=== PATIENT | male | born 1970 | race Caucasian/White ===

== ENCOUNTER 2023-09-21 11:24 | Inpatient (IN) | payer BC, SELFPAY ==
[2023-09-21 11:37] VITALS: BP 168/90; PULSE 86; RESP 18; TEMP 37.1; O2SAT 96; BMI 29.0
--- NOTE | 2023-09-21 11:55 | ECG_ITS ---
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 Measurements Intervals [place] Rate: 83 P: 47 OH: 165 QRS: 34 QRSD: 79 T: 43 QT: 366 QTc: 432 Interpretive Statements SINUS RHYTHM No previous ECG available for comparison Electronically Signed On 09-21-2023 22:01:05 CDT by Lashonda Walter M.D. [id number]
[2023-09-21 12:23] LABS: Basophils % 0.5 %; Eosinophils # 0.1 10^3/uL (0.0-0.8); Eosinophils % 0.6 %; Lymphocytes # 1.1 10^3/uL (0.8-4.8); Lymphocytes % 14.5 %; Mean Corpuscular Hemoglobin 30.5 pg (27-33); Mean Corpuscular Volume 89.5 fl (82-101); Mean Platelet Volume 9.1 fL (7.4-10.4); Monocytes # 0.7 10^3/uL (0.2-0.9); Monocytes % 9.2 %; Neutrophils # 5.83 10^3/uL (1.8-7.7); Neutrophils % 74.8 %; Nucleated Red Blood Cells % 0 %; Platelet Count 315 10^3/cmm (157-399); Red Blood Count 5.25 10^6/uL (3.85-5.65); Red Cell Distribution Width 13.5 % (12.1-15.1)
--- NOTE | 2023-09-21 12:46 | W.ED.PSYCHS ---
HPI - Psych General: Chief Complaint: Psychiatric Symptoms Stated Complaint: SI Time Seen by Provider: 09/21/23 11:33 History of Present Illness: 53-year-old male presents emergency department chief complaint of suicidal thoughts and ideations patient apparently is concerned about the infidelity in his marriage with his in which she is reported to family and friends that he wants to shoot himself to end his life patient reports she does not believe in divorce and this will give him and out patient reports history of suicidal thoughts and ideations that been going on for many years. Patient does not endorse have ever been seen by psychiatry reports no other associated symptoms. Associated symptoms: Reports depression and suicidal ideation Review of Systems General: Reports: 10 or more systems reviewed and unremarkable except in HPI and below Const: Denies: fever(s), chills, fatigue or malaise Eyes: Denies: change in vision or blurry vision Card: Denies: chest pain or palpitations Resp: Denies: dyspnea or productive cough GI: Denies: abdominal pain, nausea or vomiting : Denies: flank pain Musc: Denies: extremity pain or extremity swelling Skin/Breast: Denies: rash or pruritus Neuro: Denies: headache(s) Psych: Reports: depression, hopelessness, paranoia and suicidal ideation; Denies: anxiety Peterson/Lymph: Denies: easy bleeding All/Imm: Denies: urticaria, throat swelling or facial swelling Physical Exam Const: COMMON NORMALS: no acute distress, patient oriented x3 and healthy appearing HENMT: COMMON NORMALS: normocephalic and atraumatic HEAD & SCALP: normocephalic and atraumatic Eye: COMMON NORMALS: Equal, round and reactive pupils present and EOMs intact bilaterally PUPIL: Yes Equal, round and reactive pupils present Neck/C-Spine: COMMON NORMALS: full ROM, supple and no JVD Lymph: LYMPHATIC: no lymphadenopathy noted Chest: COMMONS NORMALS: normal inspection of the chest and normal palpation of entire chest wall Resp: COMMON NORMALS: normal respiratory effort, No retractions and clear to auscultation bilaterally EFFORT & INSPECTION: Yes able to speak in complete sentences and Yes symmetric chest movement AUSCULTATION: clear to auscultation bilaterally Cardio: COMMON NORMALS: no JVD, regular rate and regular rhythm RATE: regular rate RHYTHM: regular rhythm GI: COMMON NORMALS: Normal to inspection, nondistended, normoactive bowel sounds present, Soft to palpation and non-tender INSPECTION: Yes normal to inspection PALPATION: Yes Soft to palpation : COMMON NORMALS: Yes no CVA tenderness BLADDER/KIDNEY EXAM: Yes no CVA tenderness Back/Pelvis: COMMON NORMALS: no CVA tenderness Extremity: COMMON NORMALS: normal to inspection and full ROM Neuro: COMMON NORMALS: patient oriented x3, CN's II-XII intact bilaterally, moves all extremities and no focal motor deficits Psych: COMMON NORMALS: mental status grossly normal, Normal thought process present, cooperative and normal affect; negative for denies homicidal ideation and negative for denies suicidal ideation (Patient direct reports having homicidal and suicidal ideations towards hims) THOUGHT PROCESS: Normal thought process present Skin: COMMON NORMALS: no rashes or lesions noted GENERAL SKIN EXAM: no rashes or lesions noted Course Vital Signs: Vital signs: Vital Signs Temperature 98.8 F 09/21/23 11:37 Pulse Rate 86 09/21/23 11:37 Respiratory Rate 18 09/21/23 11:37 Blood Pressure 168/90 09/21/23 11:37 Pulse Oximetry 96 09/21/23 11:37 Oxygen Delivery Me thod Room Air 09/21/23 11:37 MDM - Psych Medical Decision Making Due to patient's significant edition patient ongoing medical clearance examinations for psychiatric placement upon clearing for psychiatric placement affidavit was filled out by the patient's daughter I will be contacting Dr. Huffman to see there is any availability in the nPU. Notified by nursing staff Dr. Carlin is actually on-call for the NPU,contacted Dr. Carlin that is in agreement that the patient should be admitted for further evaluation management. Lab Data 09/21/23 12:05 09/21/23 12:05 Laboratory Results WBC 7.80 10^3/uL (3.29-11.43) 09/21/23 12:05 RBC 5.25 10^6/uL (3.85-5.65) 09/21/23 12:05 Hgb 16.00 g/dL (11.27-16.99) 09/21/23 12:05 Hct 47.0 % (37-53) 09/21/23 12:05 MCV 89.5 fl (82-101) 09/21/23 12:05 MCH 30.5 pg (27-33) 09/21/23 12:05 MCHC 34.0 g/dL (30-55) 09/21/23 12:05 RDW 13.5 % (12.1-15.1) 09/21/23 12:05 Plt Count 315 10^3/cmm (157-399) 09/21/23 12:05 MPV 9.1 fL (7.4-10.4) 09/21/23 12:05 Neut % (Auto) 74.8 % 09/21/23 12:05 Lymph % (Auto) 14.5 % 09/21/23 12:05 Dubois % (Auto) 9.2 % 09/21/23 12:05 Eos % (Auto) 0.6 % 09/21/23 12:05 Baso % (Auto) 0.5 % 09/21/23 12:05 Neut # (Auto) 5.83 10^3/uL (1.8-7.7) 09/21/23 12:05 Lymph # (Auto) 1.1 10^3/uL (0.8-4.8) 09/21/23 12:05 Dubois # (Auto) 0.7 10^3/uL (0.2-0.9) 09/21/23 12:05 Eos # (Auto) 0.1 10^3/uL (0.0-0.8) 09/21/23 12:05 Baso # (Auto) 0.0 10^3/uL (0.0-0.1) 09/21/23 12:05 Nucleated RBC % (auto) 0 % 09/21/23 12:05 Nucleated RBCs # 0.0 /100WBC 09/21/23 12:05 Sodium 134 mmol/L (136-145) L 09/21/23 12:05 Potassium 3.9 mmol/L (3.5-5.1) 09/21/23 12:05 Chloride 98 mmol/L (98-107) 09/21/23 12:05 Carbon Dioxide 22 mmol/L (22-29) 09/21/23 12:05 Anion Gap 17.9 (5-19) 09/21/23 12:05 BUN 15 mg/dL (6-20) 09/21/23 12:05 Creatinine 0.6 mg/dL (0.7-1.2) L 09/21/23 12:05 GFR Calculation 142.0 mL/min (90-130) H 09/21/23 12:05 Glucose 142 mg/dL (65-115) H 09/21/23 12:05 Calculated Osmolality 281 mOsm/kg (285-295) L 09/21/23 12:05 Calcium 9.0 mg/dL (8.5-10.5) 09/21/23 12:05 Total Bilirubin 1.0 mg/dL (0.15-1.2) 09/21/23 12:05 AST 18 U/L (0-40) 09/21/23 12:05 ALT 17 U/L (0-41) 09/21/23 12:05 Alkaline Phosphatase 71 U/L (40-130) 09/21/23 12:05 Total Protein 8.5 g/dL (6.6-8.7) 09/21/23 12:05 Albumin 4.4 g/dL (3.5-5.2) 09/21/23 12:05 Globulin 4.1 g/dL (1.3-4.6) 09/21/23 12:05 TSH 6.11 uIU/mL (0.27-4.20) H 09/21/23 12:05 Urine Color Yellow (Yellow) 09/21/23 13:07 Urine Appearance Clear (CLEAR) 09/21/23 13:07 Urine pH 5 (5-7) 09/21/23 13:07 Ur Specific [place] 1.025 (1.005-1.030) 09/21/23 13:07 Urine Protein Neg (Negative) 09/21/23 13:07 Urine Glucose (UA) Norm (Normal) 09/21/23 13:07 Urine Ketones 1+ (Negative) H 09/21/23 13:07 Urine Blood 2+ (Negative) H 09/21/23 13:07 Urine Nitrate Negative (Negative) 09/21/23 13:07 Urine Bilirubin Neg (Negative) 09/21/23 13:07 Urine Urobilinogen Norm mg/dL (Negative) 09/21/23 13:07 Ur Leukocyte Esterase Negative (Negative) 09/21/23 13:07 Urine RBC 0-4 /hpf (0-2) H 09/21/23 13:07 Urine WBC 0-4 /hpf (0-5) H 09/21/23 13:07 Ur Squamous Epith Cells None /hpf (0-5) 09/21/23 13:07 Amorphous Sediment Not Reportable 09/21/23 13:07 Urine Bacteria None /hpf (NONE) 09/21/23 13:07 Salicylates < 0.3 mg/dL (3-10) L 09/21/23 12:05 Urine Opiates Screen Negative ng/mL (Negative) 09/21/23 13:07 Acetaminophen < 5.0 ug/mL (10-30) L 09/21/23 12:05 Ur Barbiturates Screen Negative ng/mL (Negative) 09/21/23 13:07 Ur Phencyclidine Scrn Negative ng/mL (Negative) 09/21/23 13:07 Ur Amphetamines Screen Negative ng/mL (Negative) 09/21/23 13:07 U Benzodiazepines Scrn Negative ng/mL (Negative) 09/21/23 13:07 Urine Cocaine Screen Negative ng/mL (Negative) 09/21/23 13:07 U Marijuana (THC) Screen Positive ng/mL (Negative) H 09/21/23 13:07 Ethyl Alcohol < 10 mg/dL (0-10) 09/21/23 12:05 No radiology studies performed this visit Discharge Plan Discharge Patient Disposition: Admitted As Inpatient Clinical Impression: Suicidal ideation Condition: Stable Prescriptions: No Action No Known Home Medications Coding Level of Care Code ED Senior Telecommunications Specialist for Susan Osborne
[2023-09-21 13:02] LABS: Alanine Aminotransferase 17 U/L (0-41); Albumin Level 4.4 g/dL (3.5-5.2); Alkaline Phosphatase 71 U/L (40-130); Blood Urea Nitrogen 15 mg/dL (6-20); Carbon Dioxide 22 mmol/L (22-29); Chloride 98 mmol/L (98-107); Creatinine Clr Calc Pharmacy 180.9996; Globulin 4.1 g/dL (1.3-4.6); Glucose 142 mg/dL (65-115); Osmolality Calculated 281 mOsm/kg (285-295); Sodium 134 mmol/L (136-145); Thyroid Stimulating Hormone 6.11 uIU/mL (0.27-4.20); Total Protein 8.5 g/dL (6.6-8.7)
[2023-09-21 13:05] LABS: Salicylate < 0.3 mg/dL (3-10)
[2023-09-21 13:06] LABS: Acetaminophen < 5.0 ug/mL (10-30); Alcohol Level < 10 mg/dL (0-10); Anion Gap 17.9 (5-19); Aspartate Amino Transferase 18 U/L (0-40); Potassium 3.9 mmol/L (3.5-5.1)
[2023-09-21 13:30] LABS: Amphetamines Screen Urine Negative (Negative); Barbiturates Screen Urine Negative (Negative); Benzodiazepines Screen Urine Negative (Negative); Cocaine Screen Urine Negative (Negative); Opiate Screen Urine Negative (Negative); PCP Screen Urine Negative (Negative); THC Screen Urine Positive (Negative)
[2023-09-21 13:49] LABS: Add Urine Microscopic? YES; Bilirubin Urine Neg (Negative); Blood Urine 2+ (Negative); Glucose Urine UA Norm (Normal); Ketones Urine 1+ (Negative); Leukocyte Esterase Urine Negative (Negative); Nitrate Urine Negative (Negative); Protein Urine Neg (Negative); RBC Urine 0-4 /hpf (0-2); Specific Gravity, Urine 1.025 (1.005-1.030); Urine Appearance Clear (CLEAR); Urine Color Yellow (Yellow); Urobilinogen Urine Norm (Negative); WBC Urine 0-4 /hpf (0-5); pH Urine 5 (5-7)
--- NOTE | 2023-09-21 14:00 | PC.NURSE ---
96 hr rights reviewed with patient @1320 with assistance of [facility] disciplinary hearing officer Dhaval. Patient verbalized no concerns or questions at this time. No needs when asked. Patient copy left @bedside with patient.
[2023-09-21] MEDS: acetaminophen 325 mg Tablet 650 MG PO ×2 (14:52→21:32)
[2023-09-21 15:35] VITALS: BP 168/84; PULSE 81; TEMP 36.4; O2SAT 98
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
[2023-09-21 21:25] VITALS: BP 131/87; PULSE 86; RESP 16; TEMP 36.9; O2SAT 96
[2023-09-21] MEDS: trazodone 50 mg Tablet PO (21:32)
[2023-09-21] MEDS: hyDROXYzine 25 mg Capsule 50 MG PO (21:33)
[2023-09-22 06:00] VITALS: BP 120/76; PULSE 61; RESP 16; TEMP 36.6; O2SAT 96
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
--- NOTE | 2023-09-22 08:03 | PC.NURSE ---
During nursing shift assessment, patient denies SI, HI, AVH, depression and anxiety. Patient calm and cooperative.
[2023-09-22] MEDS: acetaminophen 325 mg Tablet 650 MG PO (12:12)
[2023-09-22 13:21] VITALS: BP 120/54; PULSE 82; RESP 16; TEMP 36.6; O2SAT 96
[2023-09-22] MEDS: hyDROXYzine 25 mg Capsule 50 MG PO (16:04)
[2023-09-22 19:28] VITALS: BP 137/75; PULSE 90; RESP 18; TEMP 36.8; O2SAT 96
[2023-09-22] MEDS: trazodone 50 mg Tablet PO (20:52)
[2023-09-23 06:00] VITALS: BP 115/76; PULSE 79; RESP 18; TEMP 36.5; O2SAT 94
[2023-09-23] MEDS: OLANZapine 5 mg ODT PO (06:12)
[2023-09-23] MEDS: acetaminophen 325 mg Tablet 650 MG PO ×3 (06:13→21:37)
--- NOTE | 2023-09-23 07:54 | PC.NURSE ---
During assessment, patient stated that he is not sure that he is experiencing anxiety, that he is a driven person. Patient said that he has not seen a doctor since 1986. Patient said that this place has slowed his mental healing, that being around loved ones is the way to heal him. Patient said that he is in the worst scenario, currently. Patient stated that he has never missed a family members birthday, etc but today if he is still here, he is going to miss his two year old granddaughter's birthday republican.
[2023-09-23] MEDS: hyDROXYzine 25 mg Capsule 50 MG PO ×2 (09:16→19:32)
--- NOTE | 2023-09-23 11:51 | P.NPUPN_ITS ---
Subjective NPU 2 Subjective: Patient presented today reporting that he is doing okay. He has continued to be radio silent with his except for a brief interaction as she continues to be unwilling to give clarity to the situation that she seems to be being less then honest. He has the support of his children and has started to consider whether or not he needs to at least take some time to himself to identify what the best decision would be as well as consider not going home at discharge. He continues to be of the belief that he needs to do therapy and that medication is not necessarily needed. He continues to be tearful quite easily per staff reports and direct observation. Mental Status Exam 2 MSE Comments: This is an overweight is white male in hospital scrubs with adequate grooming and eye contact. No abnormal movements except for mild psychomotor agitation. Cooperative with exam in mild distress. Speech was normal rate and volume. Mood described as anxious and sad, affect congruent and continually tearful. Thought process organized. Thought content: Patient denied any current suicidal or homicidal ideations, but he does endorse that he did have a gun to his head and was thinking about pulling the trigger, there were no delusions reported but or noted, he denied any auditory or visual hallucinations. Attention and concentration appeared intact and memory was mostly reliable but none were formally tested. He is alert and oriented x3. Insight and judgment are limited, impulse control is limited versus impaired. Vitals/I&O/Wt Last Vital Signs Temp 97.7 F 09/23/23 06:00 Pulse 79 09/23/23 06:00 Resp 18 09/23/23 06:00 BP 115/76 09/23/23 06:00 Pulse Ox 94 09/23/23 06:00 O2 Del Method Room Air 09/23/23 06:00 Data NPU 09/21/23 12:05 09/21/23 12:05 A&P Assessment and plan (1) Suicidal ideation: (2) Marital/partner relational problem: (3) Adjustment disorder with mixed disturbance of emotions and conduct: (4) Depression: Plan This is a 53-year-old white male who is unknown to [facility] through inpatient or outpatient services but reports past mental health care after his had cheated on him approximately 15 years ago and he finds himself overwhelmed with possibility that she might have again this led to him grabbing a gun to try to convince her to be straightforward with him. 1. Consider initiating antidepressant. 2. Continue every 15 minute checks for safety. 3. Encourage individual, group and milieu therapy. 4. Obtain collateral information from family.. Involuntary Hold Information 2 96 Hour Hold: 96 Hour Involuntary Admission: Yes 96 Hour Hold Ending Date: 09/27/23 96 Hour Hold Ending Time: 13:15 Attestations NPU 2 Medical Necessity Statement*: Inpatient hospitalization is medically necessary and the clinically appropriate intervention at this time. We will monitor medications and make changes as indicated. Likely length of stay 2-4 days. Coding Level of Care Code Acute Code for Chg Fwd Diagnoses Suicidal ideation R45.851 Marital/partner relational problem Z63.0 Adjustment disorder with mixed disturbance of emotions and conduct F43.25 Depression F32.A
[2023-09-23 14:00] VITALS: BP 126/90; PULSE 78; RESP 16; TEMP 36.7; O2SAT 95
[2023-09-23] MEDS: haloperidol 5 mg Tablet PO (16:06)
--- NOTE | 2023-09-23 16:07 | PC.NURSE ---
Patient reports anxiety, requesting something different from the other medications (vistaril, zyprexa) Administered haldol 5mg PO to patient. Patient stated, I hope this does something, trying to figure out if this is actually anxiety.
[2023-09-23 19:34] VITALS: BP 128/77; PULSE 88; RESP 18; TEMP 36.7; O2SAT 94
[2023-09-23] MEDS: trazodone 50 mg Tablet PO ×2 (20:30→21:37)
[2023-09-24 06:00] VITALS: BP 115/71; PULSE 71; RESP 18; O2SAT 97
--- NOTE | 2023-09-24 07:40 | PC.NURSE ---
During morning assessment, patient reports mild anxiety. Patient stated that the vistaril is the only anxiety medication that we have given him that helps alleviate his anxiety. Patient denies SI, HI, AVH.
[2023-09-24] MEDS: acetaminophen 325 mg Tablet 650 MG PO ×2 (11:16→17:33)
[2023-09-24 14:00] VITALS: BP 148/92; PULSE 71; RESP 16; TEMP 36.5; O2SAT 96
--- NOTE | 2023-09-24 18:24 | PC.NURSE ---
This nurse talked with patient's daughter Marian who said that the onset of patient's suicidal ideation was after fighting with his about an affair he suspects she is having. This daughter said that patient bottled in the emotions until he exploded later. Patient's daughter said that she believes Fran would have committed suicide if he had not come into the hospital. For the first two days of admission, the daughter reports that patient was open and vulnerable, able to identify himself as being dependent on his . Since then though, patient has slowly started to return to being manipulative and controlling. Marian told this nurse that the patient told her yesterday that the only solution is suicide. Patient doesn't want to divorce his because it is against the bible, does states to his daughter that committing suicide is acceptable. Patient doesn't have a relationship with his youngest son because patient is manipulative and controlling to son. Patient is fighting with older sister currently as well.
--- NOTE | 2023-09-24 19:06 | P.NPUPN_ITS ---
Subjective NPU 2 Subjective: Patient presented today reporting that he is feeling a bit better. But he continues to have struggles with his and her continue to be family concerns about his safety. We discussed the risks, benefits and alternatives of a trial of Lexapro and he understood and agreed to proceed as is documented in this note. We are going to have a family meeting tomorrow morning and discuss ongoing concerns and consider discharge after. Mental Status Exam 2 MSE Comments: This is an overweight is white male in hospital scrubs with adequate grooming and eye contact. No abnormal movements except for mild psychomotor agitation. Cooperative with exam in mild distress. Speech was normal rate and volume. Mood described as a little down, affect congruent. Thought process organized. Thought content: Patient denied any current suicidal or homicidal ideations, but he does endorse that he did have a gun to his head and was thinking about pulling the trigger, there were no delusions reported but or noted, he denied any auditory or visual hallucinations. Attention and concentration appeared intact and memory was mostly reliable but none were formally tested. He is alert and oriented x3. Insight and judgment are limited, impulse control is limited versus impaired. Vitals/I&O/Wt Last Vital Signs Temp 97.7 F 09/24/23 14:00 Pulse 71 09/24/23 14:00 Resp 16 09/24/23 14:00 BP 148/92 09/24/23 14:00 Pulse Ox 96 09/24/23 14:00 O2 Del Method Room Air 09/24/23 14:00 Weight last 48 hrs Weight 99.7 kg Data NPU 09/21/23 12:05 09/21/23 12:05 A&P Assessment and plan (1) Suicidal ideation: (2) Marital/partner relational problem: (3) Adjustment disorder with mixed disturbance of emotions and conduct: (4) Depression: Plan This is a 53-year-old white male who is unknown to [facility] through inpatient or outpatient services but reports past mental health care after his had cheated on him approximately 15 years ago and he finds himself overwhelmed with possibility that she might have again this led to him grabbing a gun to try to convince her to be straightforward with him. 1. Start Lexapro 5 mg now and then 10 mg every morning. 2. Continue every 15 minute checks for safety. 3. Encourage individual, group and milieu therapy. 4. Obtain collateral information from family. Will have a family meeting in the morning and then consider discharge. Involuntary Hold Information 2 96 Hour Hold: 96 Hour Involuntary Admission: Yes 96 Hour Hold Ending Date: 09/27/23 96 Hour Hold Ending Time: 13:15 Attestations NPU 2 Medical Necessity Statement*: Inpatient hospitalization is medically necessary and the clinically appropriate intervention at this time. We will monitor medications and make changes as indicated. Likely length of stay 1-3 days. Coding Level of Care Code Acute Code for Chg Fwd Diagnoses Suicidal ideation R45.851 Marital/partner relational problem Z63.0 Adjustment disorder with mixed disturbance of emotions and conduct F43.25 Depression F32.A
[2023-09-24 19:56] VITALS: BP 119/87; PULSE 80; RESP 18; TEMP 36.3; O2SAT 96
[2023-09-24] MEDS: trazodone 50 mg Tablet PO ×2 (20:19→22:38)
[2023-09-24] MEDS: escitalopram 10 mg Tablet 5 MG PO (21:04)
[2023-09-25 06:00] VITALS: BP 113/76; PULSE 64; RESP 18; TEMP 36.4; O2SAT 96
[2023-09-25] MEDS: escitalopram 10 mg Tablet PO (08:08)
[2023-09-25] MEDS: acetaminophen 325 mg Tablet 650 MG PO (12:06)
--- NOTE | 2023-09-25 12:27 | W.PM.NPUDCS ---
Diagnoses at Discharge Discharge Diagnosis (1) Suicidal ideation: Status: Acute (2) Marital/partner relational problem: Status: Acute (3) Adjustment disorder with mixed disturbance of emotions and conduct: Status: Acute (4) Depression: Status: Acute Reason for Visit Reason for Visit: SI Involuntary Hold Information 96 Hour Hold: 96 Hour Involuntary Admission: Yes 96 Hour Hold Ending Date: 09/27/23 96 Hour Hold Ending Time: 13:15 Mental Status Exam MSE Comments: This is an overweight is white male in hospital scrubs with adequate grooming and eye contact. No abnormal movements except for mild psychomotor agitation. Cooperative with exam in mild distress. Speech was normal rate and volume. Mood described as a little down, affect congruent. Thought process organized. Thought content: Patient denied any current suicidal or homicidal ideations, but he does endorse that he did have a gun to his head and was thinking about pulling the trigger, there were no delusions reported but or noted, he denied any auditory or visual hallucinations. Attention and concentration appeared intact and memory was mostly reliable but none were formally tested. He is alert and oriented x3. Insight and judgment are limited, impulse control is limited versus impaired. Discharge Data Studies Completed and Pending: Laboratory Results WBC 7.80 10^3/uL (3.2 9-11.43) 09/21/23 12:05 RBC 5.25 10^6/uL (3.8 5-5.65) 09/21/23 12:05 Hgb 16.00 g/dL (11.27 -16.99) 09/21/23 12:05 Hct 47.0 % (37-53) 09/21/23 12:05 MCV 89.5 fl (82-101) 09/21/23 12:05 MCH 30.5 pg (27-33) 09/21/23 12:05 MCHC 34.0 g/dL (30-55) 09/21/23 12:05 RDW 13.5 % (12.1-15.1 ) 09/21/23 12:05 Plt Count 315 10^3/cmm (157 -399) 09/21/23 12:05 MPV 9.1 fL (7.4-10.4) 09/21/23 12:05 Neut % (Auto) 74.8 % 09/21/23 12:05 Lymph % (Auto) 14.5 % 09/21/23 12:05 [place] % (Auto) 9.2 % 09/21/23 12:05 Eos % (Auto) 0.6 % 09/21/23 12:05 Baso % (Auto) 0.5 % 09/21/23 12:05 Neut # (Auto) 5.83 10^3/uL (1.8 -7.7) 09/21/23 12:05 Lymph # (Auto) 1.1 10^3/uL (0.8- 4.8) 09/21/23 12:05 [place] # (Auto) 0.7 10^3/uL (0.2- 0.9) 09/21/23 12:05 Eos # (Auto) 0.1 10^3/uL (0.0- 0.8) 09/21/23 12:05 Baso # (Auto) 0.0 10^3/uL (0.0- 0.1) 09/21/23 12:05 Nucleated RBC % (a uto) 0 % 09/21/23 12:05 Nucleated RBCs # 0.0 /100WBC 09/21/23 12:05 Sodium 134 mmol/L (136-1 45) L 09/21/23 12:05 Potassium 3.9 mmol/L (3.5-5 .1) 09/21/23 12:05 Chloride 98 mmol/L (98-107 ) 09/21/23 12:05 Carbon Dioxide 22 mmol/L (22-29) 09/21/23 12:05 Anion Gap 17.9 (5-19) 09/21/23 12:05 BUN 15 mg/dL (6-20) 09/21/23 12:05 Creatinine 0.6 mg/dL (0.7-1. 2) L 09/21/23 12:05 GFR Calculation 142.0 mL/min (90- 130) H 09/21/23 12:05 Glucose 142 mg/dL (65-115 ) H 09/21/23 12:05 Calculated Osmolal ity 281 mOsm/kg (285- 295) L 09/21/23 12:05 Calcium 9.0 mg/dL (8.5-10 .5) 09/21/23 12:05 Total Bilirubin 1.0 mg/dL (0.15-1 .2) 09/21/23 12:05 AST 18 U/L (0-40) 09/21/23 12:05 ALT 17 U/L (0-41) 09/21/23 12:05 Alkaline Phosphata se 71 U/L (40-130) 09/21/23 12:05 Total Protein 8.5 g/dL (6.6-8.7 ) 09/21/23 12:05 Albumin 4.4 g/dL (3.5-5.2 ) 09/21/23 12:05 Globulin 4.1 g/dL (1.3-4.6 ) 09/21/23 12:05 TSH 6.11 uIU/mL (0.27 -4.20) H 09/21/23 12:05 Urine Color Yellow (Yellow) 09/21/23 13:07 Urine Appearance Clear (CLEAR) 09/21/23 13:07 Urine pH 5 (5-7) 09/21/23 13:07 Ur Specific Gravit y 1.025 (1.005-1.0 30) 09/21/23 13:07 Urine Protein Neg (Negative) 09/21/23 13:07 Urine Glucose (UA) Norm (Normal) 09/21/23 13:07 Urine Ketones 1+ (Negative) H 09/21/23 13:07 Urine Blood 2+ (Negative) H 09/21/23 13:07 Urine Nitrate Negative (Negati ve) 09/21/23 13:07 Urine Bilirubin Neg (Negative) 09/21/23 13:07 Urine Urobilinogen Norm mg/dL (Negat carolin) 09/21/23 13:07 Ur Leukocyte Donna ase Negative (Negati ve) 09/21/23 13:07 Urine RBC 0-4 /hpf (0-2) H 09/21/23 13:07 Urine WBC 0-4 /hpf (0-5) H 09/21/23 13:07 Ur Squamous Epith Cells None /hpf (0-5) 09/21/23 13:07 Amorphous Sediment Not Reportable 09/21/23 13:07 Urine Bacteria None /hpf (NONE) 09/21/23 13:07 Salicylates < 0.3 mg/dL (3-10 ) L 09/21/23 12:05 Urine Opiates Scre en Negative ng/mL (N egative) 09/21/23 13:07 Acetaminophen < 5.0 ug/mL (10-3 0) L 09/21/23 12:05 Ur Barbiturates Sc reen Negative ng/mL (N egative) 09/21/23 13:07 Ur Phencyclidine S crn Negative ng/mL (N egative) 09/21/23 13:07 Ur Amphetamines Sc reen Negative ng/mL (N egative) 09/21/23 13:07 U Benzodiazepines Scrn Negative ng/mL (N egative) 09/21/23 13:07 Urine Cocaine Scre en Negative ng/mL (N egative) 09/21/23 13:07 U Marijuana (THC) Screen Positive ng/mL (N egative) H 09/21/23 13:07 Ethyl Alcohol < 10 mg/dL (0-10) 09/21/23 12:05 Vitals: Last Vital Signs Temp 97.6 F 09/25/23 06:00 Pulse 64 09/25/23 06:00 Resp 18 09/25/23 06:00 BP 113/76 09/25/23 06:00 Pulse Ox 96 09/25/23 06:00 O2 Del Method Room Air 09/24/23 14:00 Discharge Plan Discharge Patient Disposition: Home Condition: Stable Prescriptions: New trazodone 50 mg Tablet 50 mg PO BEDTIME PRN (Reason: Sleep) 30 Days Qty: 30 1RF escitalopram oxalate 10 mg Tablet 10 mg PO DAILY 30 Days Qty: 30 1RF No Action No Known Home Medications Discharge Orders: Discharge Order (Routine); Ordered 09/25/23 Ordered By: Wm Carlin Discharge Diet: Regular Discharge Activity: Resume usual activity Patient Instructions: Opioid Safety Discharge Attestations NPU Time Spent in Discharge Care*: less than 30 min Specific Discharge Activities: Specific discharge activities: educating patient, discussing with piano case and bench assembler/social workers/dc planners, documenting/other paperwork and evaluating patient/reviewing data Coding Level of Care Code Acute Code for Chg Fwd Diagnoses Suicidal ideation R45.851 Marital/partner relational problem Z63.0 Adjustment disorder with mixed disturbance of emotions and conduct F43.25 Depression F32.A
[2023-09-25 13:12] VITALS: BP 113/76; PULSE 64; RESP 18; TEMP 36.4; O2SAT 96
== END 2023-09-25 13:29 | disposition home or self-care (01) | DRG 881 ==
LOC: ER 14:36 → NP 14:41
PROVIDERS: Admitting Provider Psychiatry & Neurology Psychiatry; Emergency Provider Emergency Medicine; Visit Provider Psychiatry & Neurology Psychiatry
DX: F32.A Depression, unspecified (principal); R45.851 Suicidal ideations; F43.20 Adjustment disorder, unspecified; Z63.0 Problems in relationship with spouse or partner
CPT/HCPCS: 36415; 80053; 80306; 80307; 81001; 84443; 85025; 93005; 97150; 97165; 99285